=== PATIENT | male | born 1965 | race Caucasian/White ===

== ENCOUNTER 2018-09-10 00:15 | Emergency (ER) | payer BC, SELFPAY ==
[2018-09-10 00:16] VITALS: BP 181/96; PULSE 90; RESP 18; TEMP 36.4; O2SAT 96; BMI 30.6
[2018-09-10 00:40] LABS: Red Blood Cells-Urine 0 SEEN /hpf (0-5)
[2018-09-10 00:41] LABS: Color, Urine Yellow (Yellow); Glucose, Dipstick Normal (Normal); Ketone-Dipstick Negative (Negative); Leukocyte Esterase-Dipstick Negative /ul (Negative); Nitrite-Dipstick Negative (Negative); Occult Blood-Urine Negative /ul (Negative); Protein-Dipstick 15 mg/dl (Negative); Specific Gravity, Urine 1.025 (1.002-1.030); Urine Bilirubin Dipstick Negative (Negative); Urine Clarity Sl. Cloudy (Clear); Urine Urobilinogen Normal (Normal)
[2018-09-10 00:54] LABS: Bacteria RARE /hpf (None Seen); Mucous, Urine 1+ /hpf (<or=2+); Squamous Epithelial Cells - UA 0-5 SEEN /hpf (0-5); White Blood Cells 0-5 SEEN /hpf (0-5)
--- NOTE | 2018-09-10 01:03 | CT_ITS ---
HISTORY: LEFT FLANK PAIN, NAUSEA, SOB, MINIMAL CP, HX PACER/DEFIB, DIAB, STENTS, VTECH TECHNIQUE: Helically acquired images were obtained of the chest following IV contrast as per pulmonary angiogram protocol with 3D reconstructions. A radiation dose optimization technique was used for this scan. IV Contrast dosage and agent: 100 cc [id number] COMPARISON: Chest radiographs 04/03/16. FINDINGS: # of images incl. paperwork: 602 No pulmonary embolus. No thoracic aortic dissection. Ectatic ascending thoracic aorta 3.9 cm diameter. Mild, 4.1 cm, aneurysmal dilation proximal descending thoracic aorta. The left ventricular wall appears prominent. Otherwise heart size is within normal limits. No pericardial effusion. Plan a cardiac device left chest with leads right atrium and right ventricle. Atherosclerosis including of the coronary arteries. No pulmonary edema, pneumonia, pneumothorax, or pleural effusion. Mild dependent atelectasis posteriorly. Central airways patent. No adenopathy. No acute osseous abnormality. Partially visible upper abdomen unremarkable. CT/CTA Chest W/WO Contrast IMPRESSION: No pulmonary embolus. No acute findings. Atherosclerosis. Left ventricular wall appears prominent, LVH is possible. 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 Individualized dose optimization techniques were used for this CT. at 5498 Reported and signed by: Lopez May MD Electronically Signed: Lopez May, at 3:16 EDT Tel , Service support ,
--- NOTE | 2018-09-10 01:04 | EKG12_ITS ---
Test Reason : FLANK PAIN Blood Pressure : / mmHG Vent. Rate : 079 BPM Atrial Rate : 079 BPM P-R Int : 156 ms QRS Dur : 106 ms QT Int : 400 ms P-R-T Axes : 041 -25 037 degrees QTc Int : 458 ms Suspect unspecified pacemaker failure Sinus rhythm with occasional Premature ventricular complexes Possible Left atrial enlargement Incomplete right bundle branch block Borderline ECG Confirmed by ADELA RAMOS, HAM ([id number]), primer expeditor and drier JOSE RAMIREZ ([id number]) on 09/13/2018 11:45:35 AM Referred By: VINITA Confirmed By:HAM CHAPMAN MD
[2018-09-10 01:17] VITALS: O2SAT 96
[2018-09-10] MEDS: Ondansetron 4 MG/2 ML Vial IV (01:20)
[2018-09-10] MEDS: Morphine 4 MG/ML Syringe IV (01:20)
[2018-09-10 01:40] LABS: International Normalized Ratio 1.1; Partial Thromboplast Time 28.4 Seconds (24.1-36.2); Prothrombin Time (Protime)PT. 13.5 SECONDS (11.7-14.9)
[2018-09-10 01:42] LABS: Absolute Lymphocyte Count 2.36 X10^3/ul (0.83-4.51); Absolute Neutrophil Count 6.2 X10^3/uL (2.0-7.7); Basophil# 0.02 X10^3/uL; Basophil% 0.2 % (0-1); Eosinophils% 1.1 % (0-5); Hematocrit 44.9 % (40-54); Hemoglobin 15.3 g/dl (13.0-16.5); Lymphocyte # 2.36 X10^3/ul (4.0); Lymphocyte % 24.9 % (19-41); Mean Corp Hgb Conc 34.1 g/gl (32-36); Mean Corpuscular Hgb 29.2 pg (27.0-32.0); Mean Corpuscular Volume 85.7 fL (80-94); Mean Platelet Vol. 10.6 fl (6.2-12.0); Monocyte# 0.77 X10^3/uL; Monocyte% 8.1 % (0-10); Neutrophil # 6.21 X10^3/uL (2.7-7.7); Neutrophil % 65.5 % (47-70); POSITIVE COUNT NO; POSITIVE DIFFERENTIAL NO; POSITIVE MORPHOLOGY NO; Platelet Count 193 K/mm3 (150-450); RBC Distribution Width SD 40.5 fl (35.1-43.9); Red Blood Count 5.24 M/mm3 (4.6-6.2); White Blood Count 9.5 K/mm3 (4.4-11.0)
[2018-09-10 01:50] LABS: Anion Gap 5 (5-15); BUN 17 mg/dL (7-18); BUN/Creat Ratio 14.8 RATIO (10-20); Calcium,Total 8.7 mg/dL (8.5-10.1); Chloride 104 mmol/L (98-107); Creatinine, Serum 1.15 mg/dL (0.70-1.30); EST Glomerular Filtration Rate 71 mL/min (>60); Est Glom Filt Rate - Afr Amer 86 mL/min (>60); Estimated Creatinine Clearance 75.99 ml/min; Glucose 116 mg/dL (74-106); Potassium 3.6 mmol/L (3.5-5.1); Sodium Level 140 mmol/L (136-145)
[2018-09-10 02:15] VITALS: BP 130/66; PULSE 76; O2SAT 96
--- NOTE | 2018-09-10 03:35 | ED.VISSUMM ---
- ER Visit Summary Date of Service: 09/10/18 Chief Complaint: Flank pain and nausea History of Present Illness: The patient is a 52 M who complains of left flank pain. He states this is been present for 3-4 days. It is worse with palpation or laying on that side or taking a deep breath. He reports nausea without vomiting. He has had some recent diarrhea as well peer he denies chest pain shortness of breath fevers vomiting. His pain does radiate to the back. He also complains of some increased heartburn recently. He had a cardiac arrest in May. He does note that he had rib fractures at that time but states this feels different. He frequently travels. He was in [place] in April and had a couple of trips to [place] and was ultimately transferred to [place] in May after his cardiac arrest. 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 He then had multiple emboli. He states that he had an GA because a clot went to his heart and he also had a small stroke. Physical Examination: Blood pressure 181/96 vitals otherwise unremarkable Moist mucous membranes Heart regular rate and rhythm Lungs clear Abdomen soft nontender nondistended Patient does have reproducible chest tenderness of the left lower lateral and posterior chest wall No back or CVA tenderness Test Results: EKG shows sinus rhythm at a rate of 79 with a peak ECG incomplete right bundle branch block, similar to prior. CBC BMP unremarkable. INR normal. Troponin negative. Urinalysis is unremarkable no blood. CTA of the chest shows no evidence of pulmonary embolism. There is possible LVH. There is a small aneurysm of the descending thoracic aorta. Emergency Department Course and Treatment: Given patient's recent hospitalizations, history of aortic thrombus, travel my initial concern was for pulmonary embolism. CTA ruled out pulmonary embolism. His laboratory studies are unremarkable. His pain is reproducible along the chest. He has no reproducible abdominal pain. I suspect this is likely related to chest wall pathology. At this time given his unremarkable workup as above I do not see benefit hospitalization. He does feel better after morphine and Zofran here. I explained that he should follow-up with his primary care physician. He understands to return for new or worsening symptoms. He is in agreement with this plan. He was given a prescription for [employer] for pain control and discharged home. Treatment Plan: [] Disposition: Discharge Impression: Chest wall pain This note was generated with [employer] dictation software. It may contain incorrect words, spelling, and punctuation that were not noted in review of the chart prior to signing ED Disposition - Plan for ED Patient: Referrals: [facility] Doctor,Out of [Primary Care Provider] -
--- NOTE | 2018-09-10 03:38 | ED.DCSUM_ITS ---
- ER Visit Summary Date of Service: 09/10/18 Chief Complaint: Flank pain and nausea History of Present Illness: The patient is a 52 M who complains of left flank pain. He states this is been present for 3-4 days. It is worse with palpation or laying on that side or taking a deep breath. He reports nausea without vomiting. He has had some recent diarrhea as well peer he denies chest pain shortness of breath fevers vomiting. His pain does radiate to the back. He also complains of some increased heartburn recently. He had a cardiac arrest in May. He does note that he had rib fractures at that time but states this feels different. He frequently travels. He was in [place] in April and had a couple of trips to [place] and was ultimately transferred to [place] in May after his cardiac arrest. 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 He then had multiple emboli. He states that he had an AK because a clot went to his heart and he also had a small stroke. Physical Examination: Blood pressure 181/96 vitals otherwise unremarkable Moist mucous membranes Heart regular rate and rhythm Lungs clear Abdomen soft nontender nondistended Patient does have reproducible chest tenderness of the left lower lateral and posterior chest wall No back or CVA tenderness Test Results: EKG shows sinus rhythm at a rate of 79 with a peak ECG incomplete right bundle branch block, similar to prior. CBC BMP unremarkable. INR normal. Troponin negative. Urinalysis is unremarkable no blood. CTA of the chest shows no evidence of pulmonary embolism. There is possible LVH. There is a small aneurysm of the descending thoracic aorta. Emergency Department Course and Treatment: Given patient's recent hospit alizations, history of aortic thrombus, travel my initial concern was for pulmonary embolism. CTA ruled out pulmonary embolism. His laboratory studies are unremarkable. His pain is reproducible along the chest. He has no reproducible abdominal pain. I suspect this is likely related to chest wall pathology. At this time given his unremarkable workup as above I do not see benefit hospitalization. He does feel better after morphine and Zofran here. I explained that he should follow-up with his primary care physician. He understands to return for new or worsening symptoms. He is in agreement with this plan. He was given a prescription for [employer] for pain control and discharged home. Treatment Plan: [] Disposition: Discharge Impression: Chest wall pain This note was generated with [employer] dictation software. It may contain incorrect words, spelling, and punctuation that were not noted in review of the chart prior to signing ED Disposition - Plan for ED Patient: Referrals: [facility] Doctor,Out of [Primary Care Provider] -
--- NOTE | 2018-09-10 03:38 | ED.DEP ---
ED Disposition - Plan for ED Patient: Instructions: ED Chest Pain NonCardiac, ED Flank Pain Uncertain Cause Prescriptions: Hydrocodone Bitart/Apap 5-325 [[place] 5MG-325MG] 1 tab PO Q6H PRN PRN 3 Days #12 tab PRN Reason: Pain Referrals: [facility],Out of [Primary Care Provider] -
[2018-09-10 03:52] VITALS: BP 130/66; PULSE 70; RESP 16; O2SAT 93
== END 2018-09-10 03:53 | disposition home or self-care (01) ==
PROVIDERS: Emergency Provider Emergency Medicine; Family Provider Radiologic Technologist Bone Densitometry; PCP Radiologic Technologist Bone Densitometry
DX: R07.89 Other chest pain (principal); I25.10 Atherosclerotic heart disease of native coronary artery without angina pectoris; I25.2 Old myocardial infarction; I10 Essential (primary) hypertension; E11.9 Type 2 diabetes mellitus without complications; K21.9 Gastro-esophageal reflux disease without esophagitis; Z95.5 Presence of coronary angioplasty implant and graft; Z79.84 Long term (current) use of oral hypoglycemic drugs; Z79.899 Other long term (current) drug therapy; Z86.73 Personal history of transient ischemic attack (TIA), and cerebral infarction without residual deficits
CPT/HCPCS: 71275; 80048; 81001; 84484; 85025; 85610; 85730; 93005; 96374; 96375; 99284; Q9967; A4216; J2405